=== PATIENT | female | born 1945 ===

== ENCOUNTER 2025-08-15 14:30 | Outpatient (CLI) | payer OTHER ==
--- NOTE | 2025-08-15 15:55 | RADIOLOGY REPORT ---
CLINICAL HISTORY: Left knee pain. COMPARISON: None TECHNIQUE: Multisequence multiplanar MRI images of the left knee were obtained without contrast. FINDINGS: Cruciate ligaments: ACL and PCL are intact. Extensor mechanism: Quadriceps mechanism and patellar tendon are intact. Mild edema and trace fluid in the prepatellar and superficial infrapatellar bursae. Collateral ligaments: Mild edema along the superficial fibers of the medial collateral ligament, possible mild grade 1 sprain. No tear. Lateral collateral ligament appears intact. Menisci: Intrasubstance degeneration in the body and posterior horn of the medial meniscus without visualized extension to the articular surface to suggest tear. Cartilage: Chondral thinning in all 3 compartments. No focal chondral defect visualized given the limitations of the examination. Bones: No acute fracture or focal marrow contusion. Joint fluid: Small joint effusion. Mildly thickened suprapatellar plica. Other: Motion artifact limits evaluation on some sequences. IMPRESSION: 1. Motion limited study. 2. Possible mild grade 1 sprain of the MCL. 3. Chondral thinning in all 3 compartments. No focal chondral defect visualized given the limitations of the examination. 4. Small joint effusion. 5. Additional findings as described above.
== END 2025-08-15 23:59 | disposition home or self-care (01) ==
LOC: MRI02 14:30
PROVIDERS: ATTEND Student in an Organized Health Care Education/Training Program
DX: M17.12 Unilateral primary osteoarthritis, left knee (principal); M25.462 Effusion, left knee; M25.562 Pain in left knee
CPT/HCPCS: 73721